=== PATIENT | female | born 1950 | race Caucasian/White ===

== ENCOUNTER 2019-06-19 09:06 | Outpatient (CLI) | payer MEDICARE, MEDICAID, SELFPAY ==
--- NOTE | 2019-06-19 | US_ITS ---
WS: [id number] ULTRASOUND THYROID TECHNIQUE: Ultrasound of the thyroid. CLINICAL INFORMATION: THYROID NODULE COMPARISON: FINDINGS: Thyroid: Right and left thyroid lobes are normal in size and echotexture. Multiple bilateral cystic a nd solid nodules similar in appearance to 2019. Right thyroid lobe: 4.4 cm x 1.9 cm x 1.5 cm Dominant right solid nodule measures 8 x 6 x 8 mm. Left thyroid lobe: 4.1 cm x 1.5 cm x 1.1 cm. Dominant left-sided thyroid nodule measures 7 x 4 x 7 mm. Isthmus: 3 mm. Cervical lymphadenopathy: None. US/US thyroid [id number] IMPRESSION: 1. Multiple bilateral cystic and solid thyroid nodules similar in appearance t o 2019. 2. Recommend continued annual surveillance.
== END 2019-06-19 09:07 | disposition home or self-care (01) ==
LOC: RADOUTREAD 12:52
PROVIDERS: Family Provider Family Medicine; PCP Family Medicine; Visit Provider Family Medicine
DX: Z76.89 Persons encountering health services in other specified circumstances (principal)

== ENCOUNTER 2020-05-14 09:05 | Outpatient (CLI) | payer MEDICARE, MEDICAID, SELFPAY ==
--- NOTE | 2020-05-14 09:21 | MM_ITS ---
WS: [id number] BILATERAL DIGITAL SCREENING MAMMOGRAPHY WITH CAD CLINICAL INFORMATION: SCREENING HISTORY: Screening mammogram. No current complaints. COMPARISON: TECHNIQUE: Bilateral CC and MLO views. FINDINGS: The breasts are composed of heterogeneous fibroglandular density tissue, which can limit the detectio n of small underlying mass lesions. Punctate and lucent centered calcifications. No suspicious mass, asymmetry, calcifications, or architectural distortion. No evidence of malignancy. MM/[id number] IMPRESSION: BI-RADS: 2-Benign FOLLOW UP: 1 Year Follow-up Recommend return to annual screening mammography.
== END 2020-05-14 09:06 | disposition home or self-care (01) ==
LOC: RADSHAW 09:16
PROVIDERS: Family Provider Family Medicine; PCP Family Medicine; Visit Provider Family Medicine
DX: Z12.31 Encounter for screening mammogram for malignant neoplasm of breast (principal)
CPT/HCPCS: 77067

== ENCOUNTER 2020-08-28 09:21 | Emergency (ER) | payer MEDICARE, MEDICAID, SELFPAY ==
[2020-08-28 09:24] VITALS: BP 156/79; PULSE 87; RESP 18; TEMP 37; O2SAT 97; BMI 24.3
--- NOTE | 2020-08-28 09:37 | CTR_ITS ---
PROCEDURE INFORMATION: Exam: CT Head Without Contrast Exam date and time: 08/28/2020 9:38 AM Age: 70 years old Clinical indication: Injury or trauma; Fall; Blunt trauma (contusions or hematomas) TECHNIQUE: Imaging protocol: Computed tomography of the head without contrast. Radiation optimization: All CT scans at this facility use at least one of these dose optimization techniques: automated exposure control; mA and/or kV adjustment per patient size (includes targeted exams where dose is matched to clinical indication); or iterative reconstruction. COMPARISON: No relevant prior studies available. RADIATION DOSE METRICS: Total DLP (mGy-cm): 781.01 FINDINGS: Brain: There are multiple old lacunar infarcts along the right basal ganglia. There is patchy decreased white matter density consistent with chronic small vessel white matter ischemia. There is dilatation of the lateral, 3rd and 4th ventricles out of proportion to the any sulcal prominence. The possibility of normal pressure hydrocephalus should be considered. No intracranial hemorrhage, edema or other acute abnormality is seen. Cerebral ventricles: See Brain finding. Bones/joints: Unremarkable. No acute fracture. Paranasal sinuses: Visualized sinuses are unremarkable. No fluid levels. Mastoid air cells: Visualized mastoid air cells are well aerated. Soft tissues: Unremarkable. CT/CT head wo con* [id number] IMPRESSION: 1. Old lacunar infarcts along the right basal ganglia. 2. No intracranial hemorrhage. 3. The ventricles are dilated out of proportion to any sulcal prominence. Possibility of normal pressure hydrocephalus should be considered. Radiation Dose CTDIVOL = (mGy): DLP = 781.01 (mGy-cm)
--- NOTE | 2020-08-28 09:38 | W.ED.FALL ---
HPI - Fall General: Chief Complaint: Fall Stated Complaint: fall, back pain Time Seen by Provider: 08/28/20 09:23 History of Present Illness: HPI Narrative: 70-year-old female with significant cognitive deficits with [facility] she fell backward hit the back of her head there is no loss consciousness. She had meningitis as a child has significant deficits with her gait and speech and hearing. She has had some behavioral outbursts recently. No fever sweats or chills. complaint: fall Onset (ago): minute(s) Fall from: standing Fall witnessed: yes, by living facility staff Place fall occurred: custodial/[facility] Loss of consciousness: None Prolonged down time: no Symptoms prior to fall: lightheadedness and dizziness Associated symptoms-after fall: Denies abdominal pain or chest pain Review of Systems Const: Denies: fever(s), chills, body aches, change in appetite, fatigue or malaise ENMT: Denies: throat pain, ear or mastoid pain, nasal discharge or nasal congestion Card: Denies: chest pain, edema, dyspnea on exertion or orthopnea Resp: Denies: dyspnea, productive cough or non-productive cough GI: Denies: abdominal pain, nausea, vomiting, hematemesis, coffee ground emesis, diarrhea, constipation, bloating, hematochezia or melena : Denies: flank pain, difficulty voiding, dysuria, urinary frequency or urinary urgency Skin/Breast: Denies: rash or pruritus PFSH ED PFSH: Surgical History History of cholecystectomy Social History Smoking and tobacco status: never smoked Alcohol intake: never Current occupational status: disabled Physical Exam Const: COMMON NORMALS: no acute distress GENERAL APPEARANCE: cooperative and comfortable HENMT: COMMON NORMALS: normocephalic, atraumatic and hearing grossly normal bilaterally HEAD & SCALP: normocephalic and atraumatic Neck/C-Spine: COMMON NORMALS: no JVD Resp: COMMON NORMALS: normal respiratory effort, No retractions, No use of accessory muscles and clear to auscultation bilaterally AUSCULTATION: clear to auscultation bilaterally Cardio: COMMON NORMALS: no JVD, regular rate, regular rhythm and No murmurs present (Cardio) RATE: regular rate RHYTHM: regular rhythm GI: COMMON NORMALS: Soft to palpation and No hepatosplenomegaly present AUSCULTATION: Yes normoactive bowel sounds PALPATION: Yes Soft to palpation, No Tenderness to palpation present (GI), No Guarding due to palpation present (GI) and Yes No hepatosplenomegaly present Skin: COMMON NORMALS: no rashes or lesions noted GENERAL SKIN EXAM: no rashes or lesions noted Course Vital Signs: Vital signs: Vital Signs Temperature 98.6 F 08/28/20 09:24 Pulse Rate 87 08/28/20 09:24 Respiratory Rate 18 08/28/20 09:24 Blood Pressure 156/79 08/28/20 09:24 Pulse Oximetry 97 08/28/20 09:24 MDM - Fall MDM Narrative: Medical decision making narrative: CT is fine he weighs fine reviewed findings with the patient discharged back to [facility] follow-up as needed Lab Data: Labs: Lab Results 08/28/20 Range/Units 10:15 Urine Color Yellow (Yellow) Urine Appearance Clear (CLEAR) Urine pH 7 (5-7) Ur Specific Gravit y 1.010 (1.005-1.030) Urine Protein Neg (Negative) Urine Glucose (UA) Norm (Normal) Urine Ketones Negative (Negative) Urine Blood Neg (Negative) Urine Nitrate Negative (Negative) Urine Bilirubin Neg (Negative) Urine Urobilinogen Norm (Negative) mg/dL Ur Leukocyte Bee ase Negative (Negative) Discharge Plan Discharge Patient Disposition: Home Clinical Impression: Fall Condition: Stable Prescriptions: No Action calcium carbonate [Calcium 500] 500 mg calcium (1,250 mg) tablet 500 mg PO BID RF: 0 glucosamine sulfate 500 mg tablet 500 mg PO BID RF: 0 multivitamin Tablet 1 tab PO DAILY RF: 0 psyllium husk [Daily Fiber] 0.52 gram capsule 0.52 gm PO DAILY RF: 0 buspirone 10 mg tablet 10 mg PO DAILY RF: 0 escitalopram oxalate [Lexapro] 20 mg tablet 20 mg PO DAILY RF: 0 magnesium oxide 400 mg magnesium tablet 400 mg PO DAILY RF: 0 (DME) Diabetic Shoes See Rx Instructions .ROUTE .MEDSUPPLY Qty: 1 RF: 0 ketoconazole 2 % cream 1 applic TOPICAL BID Qty: 60 RF: 1 Discharge Orders: Discharge ED (Routine); Ordered 08/28/20 Ordered By: Mitch Kaiser Referrals: Fredrick Yost MD [Primary Care Provider] - Patient Instructions: Opioid Safety Coding Level of Care Code 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
[2020-08-28 10:33] LABS: Add Urine Microscopic? NO; Charge for UA Resulting for Rev
[2020-08-28 10:38] LABS: Bilirubin Urine Neg (Negative); Blood Urine Neg (Negative); Glucose Urine UA Norm (Normal); Ketones Urine Negative (Negative); Leukocyte Esterase Urine Negative (Negative); Nitrate Urine Negative (Negative); Protein Urine Neg (Negative); Urine Appearance Clear (CLEAR); Urine Color Yellow (Yellow); Urobilinogen Urine Norm (Negative); pH Urine 7 (5-7)
[2020-08-28 12:32] VITALS: BP 149/76; PULSE 88; RESP 18; O2SAT 97
[2020-08-28 12:34] VITALS: BP 149/76; PULSE 88; RESP 18; O2SAT 97
== END 2020-08-28 12:36 | disposition home or self-care (01) ==
PROVIDERS: Emergency Provider Family Medicine; PCP Family Medicine
DX: M54.9 Dorsalgia, unspecified (principal); W19.XXXA Unspecified fall, initial encounter
CPT/HCPCS: 70450; 81003; 99282

== ENCOUNTER → 2021-03-03 09:18 | Outpatient (BNVA) | payer MEDICARE, MEDICAID, SELFPAY | PROVIDERS: PCP Family Medicine; Visit Provider Specialist | DX: M25.512 Pain in left shoulder (principal); G80.2 Spastic hemiplegic cerebral palsy; H91.3 Deaf nonspeaking, not elsewhere classified; G09 Sequelae of inflammatory diseases of central nervous system | CPT/HCPCS: 20550; 20610; 99204; J1030; J3490 ==

== ENCOUNTER → 2021-06-02 08:04 | Outpatient (BNVA) | payer MEDICARE, MEDICAID, SELFPAY | PROVIDERS: PCP Family Medicine; Visit Provider Specialist | DX: M25.512 Pain in left shoulder; H91.90 Unspecified hearing loss, unspecified ear; G81.14 Spastic hemiplegia affecting left nondominant side | CPT/HCPCS: 64642; 64644; J0585 ==

== ENCOUNTER 2021-08-12 08:35 | Outpatient (CLI) | payer MEDICARE, MEDICAID, SELFPAY ==
--- NOTE | 2021-08-12 08:46 | MM_ITS ---
WS: [id number] BILATERAL DIGITAL SCREENING MAMMOGRAPHY WITH CAD CLINICAL INFORMATION: SCREENING HISTORY: Screening mammogram. No current complaints. COMPARISON: May 14, 2020 TECHNIQUE: Bilateral CC and MLO views. FINDINGS: The breasts are composed of heterogeneous fibroglandular density tissue, which can limit the detectio n of small underlying mass lesions. Punctate and lucent centered calcifications. No suspicious mass, asymmetry, calcifications, or architectural distortion. No evidence of malignancy. MM/[id number] IMPRESSION: BI-RADS: 2-Benign FOLLOW UP: 1 Year Follow-up Recommend return to annual screening mammography.
== END 2021-08-12 08:36 | disposition home or self-care (01) ==
LOC: RADSHAW 08:42
PROVIDERS: PCP Family Medicine; Visit Provider Family Medicine
DX: Z12.31 Encounter for screening mammogram for malignant neoplasm of breast (principal)
CPT/HCPCS: 77067

== ENCOUNTER 2021-08-16 12:27 | Outpatient (CLI) | payer MEDICARE, MEDICAID, SELFPAY ==
--- NOTE | 2021-08-16 | XR_ITS ---
WS: [id number] dale barragan DEXA (DUAL ENERGY X-RAY ABSORPTIOMETRY) Bone mineral density was performed using a apprupt machine. HISTORY: Osteoporosis. COMPARISON: 03/27/2019 Lumbar spine BMD (L1-L4): 1.019 T score: -1.5 Z score: 0.3 Total hip BMD: Left: 0.683. T score: -2.6 Z score: -0.9 Right: 0.652. T score: -2.8 Z score: -1.1 10 year probability of a major osteoporotic fracture is 16%. Compared to the prior study from 03/27/2019. Lumbar spine bone mineral density has increased by 1.9%. Bilateral hips bone mineral density has decrease by 18.4%. XR/XR DEXA axial skeleton* [id number] IMPRESSION: OSTEOPOROSIS based upon the WHO classification for females. Significant decreas e in bone mineral density within the hips since the prior study. No significant change in the lumbar spine.
== END 2021-08-16 12:28 | disposition home or self-care (01) ==
LOC: RAD 12:30
PROVIDERS: PCP Family Medicine; Visit Provider Family Medicine
DX: Z78.0 Asymptomatic menopausal state (principal); M81.0 Age-related osteoporosis without current pathological fracture
CPT/HCPCS: 77080

== ENCOUNTER → 2021-09-01 10:38 | Outpatient (BNVA) | payer MEDICARE, MEDICAID, SELFPAY | PROVIDERS: PCP Family Medicine; Visit Provider Specialist | DX: G81.12 Spastic hemiplegia affecting left dominant side (principal) | CPT/HCPCS: 64642; 64644; J0585 ==

== ENCOUNTER → 2021-11-24 07:54 | Outpatient (BNVA) | payer MEDICARE, MEDICAID, SELFPAY | PROVIDERS: PCP Family Medicine; Visit Provider Specialist | DX: G81.12 Spastic hemiplegia affecting left dominant side (principal); M25.512 Pain in left shoulder; Z71.89 Other specified counseling | CPT/HCPCS: 64642; 64644; J0585 ==

== ENCOUNTER → 2022-02-16 12:24 | Outpatient (BNVA) | payer MEDICARE, MEDICAID, SELFPAY | PROVIDERS: PCP Family Medicine; Visit Provider Specialist | DX: G80.2 Spastic hemiplegic cerebral palsy (principal); Z86.61 Personal history of infections of the central nervous system; M19.012 Primary osteoarthritis, left shoulder | CPT/HCPCS: 64642; 64644; J0585 ==

== ENCOUNTER 2022-03-17 06:00 | Outpatient (RCR) | payer MEDICARE, MEDICAID, SELFPAY | END 2022-04-05 23:59 | disposition home or self-care (01) | LOC: TOT 06:00 | PROVIDERS: PCP Family Medicine; Visit Provider Specialist | DX: M25.512 Pain in left shoulder (principal); G81.10 Spastic hemiplegia affecting unspecified side | CPT/HCPCS: 97110; 97166 ==

== ENCOUNTER → 2022-05-11 14:20 | Outpatient (BNVA) | payer MEDICARE, MEDICAID, SELFPAY | PROVIDERS: PCP Family Medicine; Visit Provider Specialist | DX: G81.14 Spastic hemiplegia affecting left nondominant side (principal) | CPT/HCPCS: 64642; 64644; J0585 ==

== ENCOUNTER 2022-08-29 10:21 | Outpatient (CLI) | payer MEDICARE, MEDICAID, SELFPAY ==
--- NOTE | 2022-08-29 10:28 | MM_ITS ---
WS: [id number] BILATERAL 2D DIGITAL SCREENING MAMMOGRAPHY WITH CAD CLINICAL INFORMATION: SCREENING HISTORY: Screening mammogram. No current complaints. COMPARISON: August 12, 2021 TECHNIQUE: Bilateral CC and MLO views. FINDINGS: The breasts are composed of heterogeneous fibroglandular density tissue, which can limit the detectio n of small underlying mass lesions. No suspicious mass, asymmetry, calcifications, or architectural d istortion. No evidence of malignancy. Punctate and lucent centered calcifications. MM/[id number] IMPRESSION: BI-RADS: 2-Benign FOLLOW UP: 1 Year Follow-up Recommend return to annual screening mammography.
== END 2022-08-29 10:22 | disposition home or self-care (01) ==
LOC: RAD 10:24
PROVIDERS: PCP Family Medicine; Visit Provider Family Medicine
DX: Z12.31 Encounter for screening mammogram for malignant neoplasm of breast (principal)
CPT/HCPCS: 77067

== ENCOUNTER 2022-09-12 11:50 | Outpatient (CLI) | payer MEDICARE, MEDICAID, SELFPAY ==
--- NOTE | 2022-09-12 12:31 | US_ITS ---
WS: [id number] US pelvic complete* [id number] HISTORY: PELVIC PAIN COMPARISON: 08/15/2022 Uterus: 5.9 cm x 3.0 cm x 2.3 cm. Normal size anteverted uterus. No fibroid or mass. Limited by patient's condition. Endometrium: Not well visualized. Neither ovary is identified. No adnexal mass or free fluid. US/US pelvic complete* [id number] IMPRESSION: 1. Limited evaluation of the pelvic structures. Similar to the prior study of 08/15/2022. 2. No free fluid.
== END 2022-09-12 11:51 | disposition home or self-care (01) ==
PROVIDERS: PCP Family Medicine; Visit Provider Family Medicine
DX: R10.2 Pelvic and perineal pain (principal)
CPT/HCPCS: 76856

== ENCOUNTER → 2022-09-21 09:07 | Outpatient (BNVA) | payer MEDICARE, MEDICAID, SELFPAY | PROVIDERS: PCP Family Medicine; Visit Provider Specialist | DX: G81.14 Spastic hemiplegia affecting left nondominant side (principal) | CPT/HCPCS: 64642; 64644; 95911; J0585 ==

== ENCOUNTER → 2023-01-30 15:33 | Outpatient (BNVA) | payer MEDICARE, MEDICAID, OTHER, SELFPAY | PROVIDERS: PCP Family Medicine; Visit Provider Dermatology | DX: L82.1 Other seborrheic keratosis (principal); D18.01 Hemangioma of skin and subcutaneous tissue; L81.4 Other melanin hyperpigmentation; H61.031 Chondritis of right external ear; L57.0 Actinic keratosis | CPT/HCPCS: 17000; 17110; 99213 ==

== ENCOUNTER → 2023-02-15 08:58 | Outpatient (BNVA) | payer MEDICARE, MEDICAID, OTHER, SELFPAY | PROVIDERS: PCP Family Medicine; Visit Provider Specialist | DX: G81.12 Spastic hemiplegia affecting left dominant side (principal); M25.512 Pain in left shoulder | CPT/HCPCS: 64642; J0585 ==

== ENCOUNTER → 2023-05-10 09:41 | Outpatient (BNVA) | payer MEDICARE, MEDICAID, OTHER, SELFPAY | PROVIDERS: PCP Family Medicine; Visit Provider Nurse Practitioner Family | DX: L82.1 Other seborrheic keratosis (principal); H61.031 Chondritis of right external ear; L81.4 Other melanin hyperpigmentation; D18.01 Hemangioma of skin and subcutaneous tissue | CPT/HCPCS: 99213 ==

== ENCOUNTER → 2023-05-24 10:18 | Outpatient (BNVA) | payer MEDICARE, MEDICAID, SELFPAY | PROVIDERS: PCP Family Medicine; Visit Provider Specialist | DX: G81.14 Spastic hemiplegia affecting left nondominant side (principal) | CPT/HCPCS: 64644; 64642; J0585 ==

== ENCOUNTER → 2023-07-11 10:37 | Outpatient (BNVA) | payer MEDICARE, MEDICAID, SELFPAY | PROVIDERS: PCP Family Medicine; Visit Provider Nurse Practitioner Family | DX: L57.0 Actinic keratosis (principal); L57.8 Other skin changes due to chronic exposure to nonionizing radiation; L81.4 Other melanin hyperpigmentation; L82.1 Other seborrheic keratosis; H61.031 Chondritis of right external ear | CPT/HCPCS: 17000; 99214 ==

== ENCOUNTER → 2023-08-30 11:11 | Outpatient (BNVA) | payer MEDICARE, MEDICAID, SELFPAY | PROVIDERS: PCP Family Medicine; Visit Provider Specialist | DX: G81.12 Spastic hemiplegia affecting left dominant side (principal) | CPT/HCPCS: 64642; 64643; J0585 ==

== ENCOUNTER 2023-08-31 11:08 | Outpatient (CLI) | payer MEDICARE, MEDICAID, SELFPAY ==
--- NOTE | 2023-08-31 11:16 | MM_ITS ---
WS: [id number] BILATERAL 2D TOMOSYNTHESIS DIGITAL SCREENING MAMMOGRAPHY WITH CAD CLINICAL INFORMATION: SCREENING HISTORY: Screening mammogram. No current complaints. COMPARISON: 08/29/2022 TECHNIQUE: Bilateral CC and MLO views. FINDINGS: The breasts are composed of heterogeneous fibroglandular density tissue, which can limit the detectio n of small underlying mass lesions. No suspicious mass, asymmetry, calcifications, or architectural d istortion. No evidence of malignancy. Punctate and lucent centered calcifications. IMPRESSION: MM/[place] [id number] BI-RADS: 2-Benign FOLLOW UP: 1 Year Follow-up Recommend return to annual screening mammography.
== END 2023-08-31 11:09 | disposition home or self-care (01) ==
LOC: RAD 11:08
PROVIDERS: PCP Family Medicine; Visit Provider Family Medicine
DX: Z12.31 Encounter for screening mammogram for malignant neoplasm of breast (principal); R92.323 Mammographic fibroglandular density, bilateral breasts
CPT/HCPCS: 77067

== ENCOUNTER → 2023-10-16 09:44 | Outpatient (BNVA) | payer MEDICARE, MEDICAID, SELFPAY | PROVIDERS: PCP Family Medicine; Visit Provider Nurse Practitioner Family | DX: H61.031 Chondritis of right external ear (principal); L57.8 Other skin changes due to chronic exposure to nonionizing radiation; L81.4 Other melanin hyperpigmentation; L82.1 Other seborrheic keratosis | CPT/HCPCS: 99213 ==

== ENCOUNTER → 2023-11-29 15:11 | Outpatient (BNVA) | payer MEDICARE, MEDICAID, SELFPAY | PROVIDERS: PCP Family Medicine; Visit Provider Specialist | DX: G81.12 Spastic hemiplegia affecting left dominant side (principal) | CPT/HCPCS: 64642; 64643; J0585 ==

== ENCOUNTER → 2024-03-28 12:57 | Outpatient (BNVA) | payer MEDICARE, MEDICAID, SELFPAY | PROVIDERS: PCP Family Medicine; Visit Provider Specialist | DX: G81.12 Spastic hemiplegia affecting left dominant side (principal) | CPT/HCPCS: 64644; J0585 ==

== ENCOUNTER → 2024-06-27 12:13 | Outpatient (BNVA) | payer MEDICARE, MEDICAID, SELFPAY | PROVIDERS: PCP Family Medicine; Visit Provider Specialist | DX: G81.12 Spastic hemiplegia affecting left dominant side (principal) | CPT/HCPCS: 64644; J0585 ==

== ENCOUNTER 2024-09-09 09:19 | Outpatient (CLI) | payer MEDICARE, MEDICAID, SELFPAY ==
--- NOTE | 2024-09-09 09:20 | MM_ITS ---
WS: [id number] BILATERAL 2D DIGITAL SCREENING MAMMOGRAPHY WITH CAD CLINICAL INFORMATION: SCREENING HISTORY: Screening mammogram. No current complaints. COMPARISON: 2023 TECHNIQUE: Bilateral CC and MLO views. FINDINGS: The breasts are composed of heterogeneous fibroglandular density tissue, which can limit the detection of small underlying mass lesions. No suspicious mass, asymmetry, calcifications, or architectural distortion. No evidence of malignancy. Punctate and lucent centered calcifications. Vascular calcification. MM/[place] [id number] IMPRESSION: DENSITY: The breasts are heterogeneously dense, which may obscure small masses. BI-RADS: 2 - Benign FOLLOW UP: 1 Year Follow-up Recommend return to annual screening mammography.
== END 2024-09-09 09:20 | disposition home or self-care (01) ==
PROVIDERS: PCP Family Medicine; Visit Provider Family Medicine
DX: Z12.31 Encounter for screening mammogram for malignant neoplasm of breast (principal); R92.323 Mammographic fibroglandular density, bilateral breasts; R92.1 Mammographic calcification found on diagnostic imaging of breast
CPT/HCPCS: 77067

== ENCOUNTER → 2024-09-26 12:26 | Outpatient (BNVA) | payer MEDICARE, MEDICAID, SELFPAY | PROVIDERS: PCP Family Medicine; Visit Provider Specialist | DX: G81.14 Spastic hemiplegia affecting left nondominant side (principal) | CPT/HCPCS: 64644; J0585; J9999 ==

== ENCOUNTER → 2024-10-15 11:49 | Outpatient (BNVA) | payer MEDICARE, MEDICAID, SELFPAY | PROVIDERS: Visit Provider Nurse Practitioner Family | DX: L21.8 Other seborrheic dermatitis (principal); H61.031 Chondritis of right external ear; R20.8 Other disturbances of skin sensation; L57.8 Other skin changes due to chronic exposure to nonionizing radiation; L81.4 Other melanin hyperpigmentation; D18.01 Hemangioma of skin and subcutaneous tissue; L82.0 Inflamed seborrheic keratosis; Z78.9 Other specified health status | CPT/HCPCS: 17110; 99214 ==

== ENCOUNTER 2024-10-27 12:29 | Outpatient (RCR) | payer MEDICARE, MEDICAID, SELFPAY | END 2024-11-03 23:59 | disposition home or self-care (01) | LOC: SPT 12:29 | PROVIDERS: Visit Provider Family Medicine | DX: G81.14 Spastic hemiplegia affecting left nondominant side (principal) | CPT/HCPCS: 97110; 97162; 97530 ==

== ENCOUNTER → 2024-10-29 10:37 | Outpatient (BNVA) | payer MEDICARE, MEDICAID, SELFPAY | PROVIDERS: PCP Family Medicine; Visit Provider Podiatrist Foot & Ankle Surgery | DX: G24.9 Dystonia, unspecified (principal); M79.672 Pain in left foot; M77.42 Metatarsalgia, left foot; M20.12 Hallux valgus (acquired), left foot; M25.375 Other instability, left foot | CPT/HCPCS: 73630; 99204 ==

== ENCOUNTER 2024-11-04 06:30 | Outpatient (RCR) | payer MEDICARE, MEDICAID, SELFPAY | END 2024-12-04 23:59 | disposition home or self-care (01) | LOC: SPT 06:30 | PROVIDERS: PCP Family Medicine; Visit Provider Family Medicine | DX: G81.14 Spastic hemiplegia affecting left nondominant side (principal) | CPT/HCPCS: 97110 ==

== ENCOUNTER 2024-12-30 12:15 | Outpatient (CLI) | payer MEDICARE, MEDICAID, SELFPAY | END 2024-12-30 12:16 | disposition home or self-care (01) | LOC: SPT 12:16 | PROVIDERS: PCP Family Medicine; Visit Provider Podiatrist Foot & Ankle Surgery | DX: Z46.89 Encounter for fitting and adjustment of other specified devices (principal); M79.672 Pain in left foot; M79.671 Pain in right foot | CPT/HCPCS: 99213; L3030 ==

== ENCOUNTER → 2025-01-01 11:19 | Outpatient (BNVA) | payer MEDICARE, MEDICAID, SELFPAY | PROVIDERS: PCP Family Medicine; Visit Provider Specialist | DX: G81.14 Spastic hemiplegia affecting left nondominant side (principal) | CPT/HCPCS: 64644; J0585; J9999 ==

== ENCOUNTER → 2025-04-03 11:16 | Outpatient (BNVA) | payer MEDICARE, MEDICAID, SELFPAY | PROVIDERS: PCP Family Medicine; Visit Provider Emergency Medicine | DX: R39.9 Unspecified symptoms and signs involving the genitourinary system (principal) | CPT/HCPCS: 81000; 87086 ==